=== PATIENT | female | born 1995 | race Caucasian/White ===

== ENCOUNTER 2017-06-11 05:14 | Emergency (ER) | payer OTHER ==
[~2017-06-11] VITALS: Ht 165.1 cm; Wt 62.8 kg
[~2017-06-11 05:14] MED LIST: ABL5 PO; CETI10TA84 PO; CNC/54 PO; DIPH25CA65 PO; ESOM20CA PO; FERR325T51 PO; LAMO150T PO; MOME50SP5; SNGCH5 PO; ZNTT/150 PO
[2017-06-11] MEDS ORDERED: SODIUM CHLORIDE 0.9% 1000ML 1,000 ML IV STA (05:22)
[2017-06-11] MEDS ORDERED: ONDANSETRON INJ 2 MG/ML 2 ML VIAL IV STA (05:22)
[2017-06-11] MEDS ORDERED: OPTIRAY 320 IV PRN (05:30)
[2017-06-11 05:56] LABS: ISTAT CREATININE 0.7 mg/dl; ISTAT HEMOGLOBIN 12.2 g/dl (12.0-16.0); ISTAT IONIZED CALCIUM 1.21 mmol/l
[2017-06-11 06:00] LABS: URINE APPEARANCE CLOUDY (CLEAR); URINE BILIRUBIN NEG (NEG); URINE COLOR DK YELLOW; URINE EPITHELIAL CELL AUTO >30 /lpf (0-5); URINE NITRITE NEG (NEG); URINE SPECIFIC GRAVITY 1.029 (1.000-1.030); UROBILINOGEN NEG (NEG); ZZUR CULT IF INDIC CLEAN CATCH YES
[2017-06-11 06:01] LABS: BASO % 0.1 %; BASO ABS # 0.02 K/uL (0-0.2); COMPLETE YES; EOS % 0.3 %; HEMATOCRIT 37.3 % (37-47); IG% 0.2 %; LYMPH % 10.1 %; MANUAL MICROSCOPIC REQUIRED? NO; MEAN CELL VOLUME 90.1 fL (80-100); MEAN CORPUSCULAR HEMOGLOBIN 31.9 pg (25-34); MEAN CORPUSCULAR HGB CONC 35.4 g/dl (32-36); MONO % 5.3 %; PLATELET COUNT 282 K/uL (130-400); RED BLOOD COUNT 4.14 M/uL (4.2-5.4); REVIEW REQ? YES; WHITE BLOOD COUNT 13.81 K/uL (4.8-10.8)
[2017-06-11 06:10] LABS: CREATININE 0.85 mg/dl (0.60-1.20); POTASSIUM 3.8 mmol/L (3.5-5.1)
[2017-06-11 06:16] LABS: URINE MUCUS PRESENT (NONE PRSENT)
[2017-06-11 06:26] LABS: PREG INTERNAL NEGATIVE QC NEG CLEAR BACKGROUND; PREG INTERNAL POSITIVE QC POS CONTROL LINE
[2017-06-11] MEDS ORDERED: FERR1TAB13 PO (06:34)
[2017-06-11] MEDS ORDERED: MONT1TAB3 PO (06:37)
[2017-06-11] MEDS ORDERED: MOME6000 NAE (06:39)
[2017-06-11] MEDS ORDERED: CEFOXITIN 2000MG/60 ML D5W IV STA (06:54)
--- NOTE | 2017-06-11 06:59 | EMERGENCY ROOM VISIT NOTE ---
History First contact with patient: 05:20 Chief Complaint: ABDOMINAL PAIN Stated Complaint: SHARP ABDOMINAL PAIN,NAUSEA History of Present Illness The patient is a 21 year old female who presents to the Emergency Room with complaints of nausea and right lower quadrant pain since 7 PM last night steadily getting worse currently 7 out of 10. Palpation makes it worse and nothing makes it better. It does not radiate. Patient denies chest pain, dyspnea, fever, chills, vomiting, diarrhea, back pain, urinary symptoms. No abdominal surgeries. Last menstrual cycle was 2 weeks ago. Review of Systems See HPI for pertinent positives & negatives. A total of 10 systems reviewed and were otherwise negative. Social History Smoking Status: Never Smoker Smokeless Tobacco Use: No Alcohol Use: none Drug Use: none Housing Status: lives with family Current/Historical Medications Scheduled Cetirizine (Zyrtec), 10 MG PO QPM Diphenhydramine Hcl (Benadryl Allergy), 25 MG PO HS Ferrous Sulfate (Kp Ferrous Sulfate), 325 MG PO BID Lamotrigine (Lamictal), 150 MG PO QAM Methylphenidate Hcl (Concerta), 54 MG PO QAM Montelukast Sodium (Singulair), 10 MG PO DAILY Scheduled PRN Esomeprazole Magnesium (Nexium), 20 MG PO QPM PRN for GI Upset Mometasone Furoate (Nasal) (Mometasone Furoate), 1 SPRAY FLACO BID PRN for CONGESTION Ranitidine (Zantac), 150 MG PO QPM PRN for GI Upset Physical Exam Vital Signs Date Time Temp Pulse Resp B/P (MAP) Pulse Ox O2 Delivery O2 Flow Rate FiO2 06/11/17 06:41 66 18 100 06/11/17 06:36 69 100 06/11/17 06:31 108/61 06/11/17 06:29 66 100 06/11/17 06:14 67 100 06/11/17 06:09 70 16 116/67 100 Room Air 06/11/17 05:16 36.8 102 20 108/71 98 Room Air Physical Exam VITALS: Vitals are noted on the nurse's note and reviewed by myself. Vital signs stable. GENERAL: Pleasant female, in no acute distress, nondiaphoretic, well-developed well-nourished. SKIN: The skin was without rashes, erythema, edema, or bruising. There is no tenting of the skin. Capillary reflex less than 2 seconds. HEAD: Normocephalic atraumatic. EARS: External auditory canals clear, tympanic membranes pearly [place] without erythema or effusion bilaterally. EYES: Pupils equal round and reactive to light and accommodation. Conjunctivae without injection, sclerae without icterus. Extraocular movements intact. NOSE: Patent, turbinates without inflammation or discharge. MOUTH: Mucous membranes moist. Pharynx without erythema or exudate. Uvula midline. Airway patent. Tongue does not deviate. NECK: Supple without nuchal rigidity. No lymphadenopathy. No thyromegaly. Cervical spine is nontender. No JVD. HEART: Regular rate and rhythm without murmurs gallops or rubs. LUNGS: Clear to auscultation bilaterally without wheezes, rales or rhonchi. No dullness to percussion. No retractions or accessory muscle use. ABDOMEN: Positive bowel sounds x 4. Normal tympanic percussion. Soft, tender to palpation right lower quadrant, no CVA tenderness, without masses or organomegaly. Kc sign negative. No guarding or rebound tenderness. MUSCULOSKELETAL: No muscle atrophy, erythema, or edema noted. NEURO: Patient was alert and oriented to person place and time. Normal sensation to light and sharp touch. No focal neurological deficits. Medical Decision & Procedures Laboratory Results 06/11/17 05:35 Red Blood Count 4.14, Mean Corpuscular Volume 90.1, Mean Corpuscular Hemoglobin 31.9, Mean Corpuscular Hemoglobin Concent 35.4, Mean Platelet Volume 10.0, Neutrophils (%) (Auto) 84.0, Lymphocytes (%) (Auto) 10.1, Monocytes (%) (Auto) 5.3, Eosinophils (%) (Auto) 0.3, Basophils (%) (Auto) 0.1, Neutrophils # (Auto) 11.59, Lymphocytes # (Auto) 1.40, Monocytes # (Auto) 0.73, Eosinophils # (Auto) 0.04, Basophils # (Auto) 0.02 06/11/17 05:35 Test 06/11/17 05:35 06/11/17 05:44 White Blood Count 13.81 K/uL (4.8-10.8) Red Blood Count 4.14 M/uL (4.2-5.4) Hemoglobin 13.2 g/dL (12.0-16.0) Hematocrit 37.3 % (37-47) Mean Corpuscular Volume 90.1 fL (80-100) Mean Corpuscular Hemoglobin 31.9 pg (25-34) Mean Corpuscular Hemoglobin Concent 35.4 g/dl (32-36) Platelet Count 282 K/uL (130-400) Mean Platelet Volume 10.0 fL (7.4-10.4) Neutrophils (%) (Auto) 84.0 % Lymphocytes (%) (Auto) 10.1 % Monocytes (%) (Auto) 5.3 % Eosinophils (%) (Auto) 0.3 % Basophils (%) (Auto) 0.1 % Neutrophils # (Auto) 11.59 K/uL (1.4-6.5) Lymphocytes # (Auto) 1.40 K/uL (1.2-3.4) Monocytes # (Auto) 0.73 K/uL (0.11-0.59) Eosinophils # (Auto) 0.04 K/uL (0-0.5) Basophils # (Auto) 0.02 K/uL (0-0.2) RDW Standard Deviation 41.2 fL (36.4-46.3) RDW Coefficient of Variation 12.6 % (11.5-14.5) Immature Granulocyte % (Auto) 0.2 % Immature Granulocyte # (Auto) 0.03 K/uL (0.00-0.02) Urine Color DK YELLOW Urine Appearance CLOUDY (CLEAR) Urine pH 5.0 (4.5-7.5) Urine Specific [place] 1.029 (1.000-1.030) Urine Protein NEG (NEG) Urine Glucose (UA) NEG (NEG) Urine Ketones NEG (NEG) Urine Occult Blood NEG (NEG) Urine Nitrite NEG (NEG) Urine Bilirubin NEG (NEG) Urine Urobilinogen NEG (NEG) Urine Leukocyte Esterase NEG (NEG) Urine WBC (Auto) 1-5 /hpf (0-5) Urine RBC (Auto) 0-4 /hpf (0-4) Urine Hyaline Casts (Auto) 0 /lpf (0-5) Urine Epithelial Cells (Auto) >30 /lpf (0-5) Urine Bacteria (Auto) 1+ (NEG) Urine Pathogenic Casts /lpf (0) Urine Mucus PRESENT (NONE PRSENT) Est Creatinine Clear Calc Drug Dose 95.8 ml/min Estimated GFR () 115.1 Estimated GFR (Non- 99.3 BUN/Creatinine Ratio 9.0 (10-20) Calcium Level 9.0 mg/dl (8.5-10.1) Human Chorionic Gonadotropin, Qual NEG (NEG) Bedside Hemoglobin 12.2 g/dl (12.0-16.0) Bedside Hematocrit 36 % (37-47) Bedside Sodium 141 mEq/L (135-144) Bedside Potassium 3.8 mEq/L (3.3-5.0) Bedside Chloride 105 mEq/L (101-112) Bedside Total CO2 24 mEq/l (24-31) Anion Gap 17.0 mmol/L (16-25) Bedside Blood Urea Nitrogen 6 mg/dl (7-18) Bedside Creatinine 0.7 mg/dl Bedside Glucose (other) 104 mg/dl (70-99) Bedside Ionized Calcium (Xiomy) 1.21 mmol/l Medications Administered Medications (Trade) Dose Ordered Sig/Jess Route Start Time Stop Time Status Last Admin Dose Admin Sodium Chloride 1,000 ml @ 999 mls/hr Q1H1M STAT IV 06/11/17 05:22 06/11/17 06:22 DC 06/11/17 05:53 999 MLS/HR Ondansetron HCl (Zofran Inj) 4 mg NOW STAT IV 06/11/17 05:22 06/11/17 05:25 DC 06/11/17 05:54 4 MG ED Course Prior records/ancillary studies reviewed. Triage Nursing notes reviewed. Additional history obtained from family The patient's history was concerning for abdominal pain. Differential diagnosis: Etiologies such as appendicitis, ovarian cyst, diverticulitis, PUD, biliary pathology, UTI, pancreatitis, obstruction, mesenteric ischemia, aortic pathology , infections, inflammatory bowel disease, renal colic, as well as others were entertained. Physical examination findings: As above. ER treatment provided: IV fluids, Zofran, Mefoxin On reassessment the patient felt better. Diagnostics interpreted by me: The labs revealed leukocytosis. Stable H&H. Negative urine Imaging studies: CT concerning for acute appendicitis Consultation: A consultation was placed with the Dr. Bautista. The case was discussed and diagnostics were reviewed. The patient was evaluated in the ER for further treatment. Exam and history seem consistent with acute appendicitis. Patient was neurovascularly and neurologically intact. She is well-appearing. She is afebrile and nontoxic. She will be evaluated by surgery. She is placed nothing by mouth. By the evaluation outlined above emergent etiologies such as diverticulitis, PUD , biliary pathology, UTI, pancreatitis, obstruction, mesenteric ischemia, aortic pathology, inflammatory bowel disease, renal colic, as well as others were deemed relatively unlikely. The pt informed about the findings as listed above. All questions were answered and pleased with the treatment. Case reviewed with my attending Medical Decision As above Medication Reconcilliation Current Medication List: was personally reviewed by me Blood Pressure Screening Patient's blood pressure: Normal blood pressure Impression Primary Impression: Appendicitis Departure Information Dispostion Being Evaluated By Surgeon Condition GOOD Referrals Henrique Kerns M.D. (MEDICAL) (PCP) Patient Instructions My [facility] Problem Qualifiers Primary Impression: Appendicitis Appendicitis type: acute appendicitis Acute appendicitis type: with localized peritonitis Qualified Codes: K35.3 - Acute appendicitis with localized peritonitis
--- NOTE | 2017-06-11 07:25 | DIAGNOSTIC IMAGING REPORT ---
ABDOMEN AND PELVIS CT WITH IV CONTRAST CT DOSE: 272.02 mGy.cm HISTORY: Right lower quadrant abdominal pain. TECHNIQUE: Multiaxial CT images of the abdomen and pelvis were performed following the use of intravenous contrast. A dose lowering technique was utilized adhering to the principles of ALARA. COMPARISON STUDY: Abdomen and pelvis CT 07/16/2010. FINDINGS: The lung bases are clear. The liver, gallbladder, spleen, adrenal glands, pancreas, and kidneys are unremarkable. No retroperitoneal lymphadenopathy. No evidence for bowel obstruction. The bladder, uterus, and ovaries are unremarkable. There is a fluid-filled, thick-walled, distended appendix seen within the right lower quadrant on image 62. This measures 9 mm in diameter and is consistent with acute appendicitis. No perforation or abscess at this time. IMPRESSION: Acute appendicitis. Electronically signed by: Gilbert Christine M.D. 06/11/2017 7:24 AM Dictated Date/Time: 06/11/2017 7:22 AM
[2017-06-11 07:45] VITALS: O2SAT 100; Ht 165.1 cm; Wt 62.8 kg
--- NOTE | 2017-06-11 07:49 | Medical Consult ---
Consultation Date of Consultation: Jun 11, 2017. Attending Physician: Reason for Consultation: Acute Appendicitis History of Present Illness Ms. Rosario is a 21-year-old female who presented to the [facility] ED for abdominal pain that began yesterday evening around 7PM. Patient states that abdominal pain started roughly 1 hour after dinner. She states that the pain is located near the umbilicus and is now radiating into right lower quadrant. She reports that she was nauseous, but that has improved. Patient denies prior abdominal surgeries. Past Medical/Surgical History Medical Problems: (1) Appendicitis Status: Acute (2) Finger laceration Status: Acute Surgical History 1. Adenoidectomy Social History Smoking Status: Never Smoker Smokeless Tobacco Use: No Drug Use: none Housing Status: lives with family Allergies Coded Allergies: Albuterol (Verified Adverse Reaction, Intermediate, CONFUSION, 06/11/17) Current Inpatient Medications Current Inpatient Medications Medications (Trade) Dose Ordered Sig/Jess Route Start Time Stop Time Status Last Admin Dose Admin Ioversol (Optiray 320) 100 ml UD PRN IV 06/11/17 05:30 06/15/17 05:29 Review of Systems Constitutional: No fever, No chills Respiratory: No cough Cardiovascular: No chest pain Abdomen: + pain, No nausea, No vomiting Physical Exam Date Time Temp Pulse Resp B/P (MAP) Pulse Ox O2 Delivery O2 Flow Rate FiO2 06/11/17 06:41 66 18 100 06/11/17 06:36 69 100 06/11/17 06:31 108/61 06/11/17 06:29 66 100 06/11/17 06:14 67 100 06/11/17 06:09 70 16 116/67 100 Room Air 06/11/17 05:16 36.8 102 20 108/71 98 Room Air General Appearance: WD/WN, no apparent distress Head: normocephalic, atraumatic Neck: supple Respiratory/Chest: normal breath sounds, no respiratory distress, no accessory muscle use Abdomen/GI: soft, + pertinent finding (tender to palpation at umbilicus and right lower quadrant. ) Skin: normal color, warm/dry, no rash Laboratory Results Last 24 Hours Test 06/11/17 05:35 06/11/17 05:44 White Blood Count 13.81 K/uL Red Blood Count 4.14 M/uL Hemoglobin 13.2 g/dL Hematocrit 37.3 % Mean Corpuscular Volume 90.1 fL Mean Corpuscular Hemoglobin 31.9 pg Mean Corpuscular Hemoglobin Concent 35.4 g/dl Platelet Count 282 K/uL Mean Platelet Volume 10.0 fL Neutrophils (%) (Auto) 84.0 % Lymphocytes (%) (Auto) 10.1 % Monocytes (%) (Auto) 5.3 % Eosinophils (%) (Auto) 0.3 % Basophils (%) (Auto) 0.1 % Neutrophils # (Auto) 11.59 K/uL Lymphocytes # (Auto) 1.40 K/uL Monocytes # (Auto) 0.73 K/uL Eosinophils # (Auto) 0.04 K/uL Basophils # (Auto) 0.02 K/uL RDW Standard Deviation 41.2 fL RDW Coefficient of Variation 12.6 % Immature Granulocyte % (Auto) 0.2 % Immature Granulocyte # (Auto) 0.03 K/uL Urine Color DK YELLOW Urine Appearance CLOUDY Urine pH 5.0 Urine Specific [place] 1.029 Urine Protein NEG Urine Glucose (UA) NEG Urine Ketones NEG Urine Occult Blood NEG Urine Nitrite NEG Urine Bilirubin NEG Urine Urobilinogen NEG Urine Leukocyte Esterase NEG Urine WBC (Auto) 1-5 /hpf Urine RBC (Auto) 0-4 /hpf Urine Hyaline Casts (Auto) 0 /lpf Urine Epithelial Cells (Auto) >30 /lpf Urine Bacteria (Auto) 1+ Urine Pathogenic Casts /lpf Urine Mucus PRESENT Sodium Level 137 mmol/L Potassium Level 3.8 mmol/L Chloride Level 108 mmol/L Carbon Dioxide Level 24 mmol/L Anion Gap 5.0 mmol/L 17.0 mmol/L Blood Urea Nitrogen 8 mg/dl Creatinine 0.85 mg/dl Est Creatinine Clear Calc Drug Dose 95.8 ml/min Estimated GFR () 115.1 Estimated GFR (Non- 99.3 BUN/Creatinine Ratio 9.0 Random Glucose 100 mg/dl Calcium Level 9.0 mg/dl Human Chorionic Gonadotropin, Qual NEG Bedside Hemoglobin 12.2 g/dl Bedside Hematocrit 36 % Bedside Sodium 141 mEq/L Bedside Potassium 3.8 mEq/L Bedside Chloride 105 mEq/L Bedside Total CO2 24 mEq/l Bedside Blood Urea Nitrogen 6 mg/dl Bedside Creatinine 0.7 mg/dl Bedside Glucose (other) 104 mg/dl Bedside Ionized Calcium (Xiomy) 1.21 mmol/l ABDOMEN AND PELVIS CT WITH IV CONTRAST CT DOSE: 272.02 mGy.cm HISTORY: Right lower quadrant abdominal pain. TECHNIQUE: Multiaxial CT images of the abdomen and pelvis were performed following the use of intravenous contrast. A dose lowering technique was utilized adhering to the principles of ALARA. COMPARISON STUDY: Abdomen and pelvis CT 07/16/2010. FINDINGS: The lung bases are clear. The liver, gallbladder, spleen, adrenal glands, pancreas, and kidneys are unremarkable. No retroperitoneal lymphadenopathy. No evidence for bowel obstruction. The bladder, uterus, and ovaries are unremarkable. There is a fluid-filled, thick-walled, distended appendix seen within the right lower quadrant on image 62. This measures 9 mm in diameter and is consistent with acute appendicitis. No perforation or abscess at this time. IMPRESSION: Acute appendicitis. Assessment & Plan 21-year-old female CT positive for acute appendicitis- no perforation or abscess at this time. Patient seen and examined with Dr. Bautista. WBC elevated at 13.81 Patient's last meal was at 6PM yesterday. Will plan for Laparoscopic Appendectomy, Possible Open in OR today. Discussed risks and benefits of surgery with patient and patient's mother. Patient had no further questions. Pre-op antibiotic ordered. NPO BRITTANYs
[2017-06-11] MEDS ORDERED: HYDROmorphone INJ 0.5 MG/0.5 ML SYR IV PRN (08:45)
[2017-06-11] MEDS ORDERED: ATROPINE SULFATE 0.1 MG/ML 5ML SYR IV PRN (08:45)
[2017-06-11] MEDS ORDERED: FENTANYL CITRATE INJ 50 MCG/1 ML 2 ML VIAL IV PRN (08:45)
[2017-06-11] MEDS ORDERED: ONDANSETRON INJ 2 MG/ML 2 ML VIAL IV PRN ×2 (08:45→11:00)
[2017-06-11] MEDS ORDERED: EpHEDrine SULFATE INJ 50 MG/ML AMP IV PRN (08:45)
[2017-06-11] MEDS ORDERED: PROMETHAZINE HCL INJ 12.5 MG in SODIUM CHLORIDE 0.9% 50ML 50 ML IV PRN (08:45)
[2017-06-11] MEDS ORDERED: LIDOCAINE/EPINEPHRINE 1% 20 ML VIAL ONE (08:52)
[2017-06-11 09:33] VITALS: O2SAT 100
[2017-06-11] MEDS ORDERED: ONDANSETRON INJ 2 MG/ML 2 ML VIAL ONE (09:33)
[2017-06-11] MEDS ORDERED: PROPOFOL IV EMULSION 10 MG/ML 20 ML VIAL IV ONE (09:33)
[2017-06-11] MEDS ORDERED: NEOSTIGMINE METHYLSULFATE 5 MG/5 ML SYR ONE (09:33)
[2017-06-11] MEDS ORDERED: DEXAMETHASONE SOD INJ 4 MG/ML VIAL ONE (09:33)
[2017-06-11] MEDS ORDERED: FENTANYL CITRATE INJ 50 MCG/1 ML 2 ML VIAL ONE ×2 (09:33→10:14)
[2017-06-11] MEDS ORDERED: MIDAZOLAM HCL 1 MG/ML 2ML VIAL ONE (09:33)
[2017-06-11] MEDS ORDERED: GLYCOPYRROLATE INJ 0.2 MG/ML VIAL ONE (09:33)
[2017-06-11] MEDS ORDERED: ROCURONIUM BROMIDE 10 MG/ML 5 ML VIAL IV ONE (09:33)
[2017-06-11] MEDS ORDERED: LIDOCAINE HCL 2% 2 ML VIAL (20MG/ML) ONE (09:33)
[2017-06-11] MEDS ORDERED: ACETAMINOPHEN 1000 MG/100 ML IV IV ONE (09:38)
--- NOTE | 2017-06-11 09:51 | History & Physical Bridge Note ---
H&P Re-Evaluation Bridge Note: I have examined the patient, reviewed the History & Physical and in the interval since the performance of the History & Physical I have noted the following changes of clinical significance: No changes noted pt seen and examined plan lap appy possible open for acute appendicitis. r and c explained to pt and family
[2017-06-11] MEDS ORDERED: CEFOXITIN SOD 1 GM VIAL ONE (10:15)
[2017-06-11] MEDS ORDERED: SODIUM CHLORIDE 0.9% 1000ML 1,000 ML IV SCH (10:46)
--- NOTE | 2017-06-11 10:47 | [facility] Operative Report ---
Operative Report Operative Date Jun 11, 2017. Pre-Operative Diagnosis Acute appendicitis Post-Operative Diagnosis same Procedure(s) Performed Laparoscopic Appendectomy Surgeon Dr Bautista [place] Actor Surgeon(s) Genny Mckeon PA-C Estimated Blood Loss 2ML Findings acute non ruptured appendicitis Specimens A. appendix Description of Procedure OR summary dictated [id number] I attest to the content of the Intraoperative Record and any orders documented therein. Any exceptions are noted below.
[2017-06-11] MEDS ORDERED: OXYC-57 PO (10:49)
--- NOTE | 2017-06-11 10:53 | Discharge Instructions ---
Discharge Instructions Date of Service Jun 11, 2017. Admission Reason for Admission: Sharp Abdominal Pain,Nausea Discharge Discharge Diagnosis / Problem: Sharp Abdominal Pain, Nausea Discharge Goals Goal(s): Decrease discomfort, Improve function Activity Recommendations Activity Limitations: as noted below Lifting Limitations: no more than 10 pounds Exercise/Sports Limitations: until after follow-up appointment May Resume Sexual Activity: after follow-up appointment Shower/Bathe: tomorrow Driving or Machine Use: resume 1 day after discharge . Instructions / Follow-Up Instructions / Follow-Up You may shower tomorrow AM. You have steri-strips over your incision. Please leave those on until they fall off by themselves. Please follow-up with Dr. Bautista in the General Surgery Office in 1 week. The General Surgery Office is located at [address] [place] [address], [place] [address]. Please call the office at [phone] to make a follow-up appointment. Please call the office with any questions or concerns. Current Hospital Diet Patient's current hospital diet: Discharge Diet Recommended Diet: Regular Diet Procedures Procedures Performed: Laparoscopic Appendectomy Pending Studies Studies pending at discharge: yes List of pending studies: Pathology report. Medical Emergencies . Who to Call and When: Medical Emergencies: If at any time you feel your situation is an emergency, please call 911 immediately. . Non-Emergent Contact Non-Emergency issues call your: Primary Care Provider, Surgeon Call Non-Emergent contact if: temperature is above 101.5, your pain is not controlled, wound has increased drainage, wound has increased redness . "Provider Documentation" section prepared by Genny Mckeon. . VTE Core Measure Inpt VTE Proph given/why not?: SCD's [place] Drug Monitoring Program Search Results: patient reviewed within database, no issues identified
[2017-06-11] MEDS ORDERED: OXYCODONE/ACETAMINOPHEN 5-325 TAB PO PRN ×2 (11:00)
[2017-06-11] MEDS ORDERED: OXYCODONE/ACETAMINOPHEN 5-325 TAB ONE (11:20)
--- NOTE | 2017-06-11 11:25 | Anesthesiology Progress Note ---
Anesthesia Post Op Note Date & Time Jun 11, 2017 at 11:24 Vital Signs Pain Intensity: 2 Vital Signs Past 12 Hours Date Time Temp Pulse Resp B/P (MAP) Pulse Ox O2 Delivery O2 Flow Rate FiO2 06/11/17 11:21 36.5 59 16 130/76 100 Nasal Cannula 2 06/11/17 11:11 120/63 06/11/17 11:11 120/63 06/11/17 11:08 89 17 06/11/17 11:08 89 17 06/11/17 11:08 92 17 100 06/11/17 11:08 92 17 100 06/11/17 11:06 129/69 06/11/17 11:06 129/69 06/11/17 11:03 62 14 100 06/11/17 11:03 62 14 06/11/17 11:03 62 14 100 06/11/17 11:03 62 14 06/11/17 11:01 133/68 06/11/17 11:01 133/68 06/11/17 10:59 128/74 06/11/17 10:59 128/74 06/11/17 10:58 36.6 103 14 128/74 (88) 100 Oxymask 10 06/11/17 09:33 77 20 115/60 100 06/11/17 07:45 100 Room Air 06/11/17 07:31 115/62 06/11/17 07:16 69 100 06/11/17 07:01 112/66 06/11/17 06:46 61 100 06/11/17 06:41 66 18 100 06/11/17 06:36 69 100 06/11/17 06:31 108/61 06/11/17 06:29 66 100 06/11/17 06:14 67 100 06/11/17 06:09 70 16 116/67 100 Room Air 06/11/17 05:16 36.8 102 20 108/71 98 Room Air Notes Mental Status: alert / awake / arousable, participated in evaluation Pt Amnestic to Procedure: Yes Nausea / Vomiting: adequately controlled Pain: adequately controlled Airway Patency, RR, SpO2: stable & adequate BP & HR: stable & adequate Hydration State: stable & adequate Anesthetic Complications: no major complications apparent Awake, no complaints, doing well. VSS
--- NOTE | 2017-06-11 11:34 | OPERATIVE REPORT ---
DATE OF OPERATION: 06/11/2017 SURGEON: Dr. Bautista. ANTHROPOLOGY LECTURER: Genny Mckeon PA-C PREOPERATIVE DIAGNOSIS: Acute appendicitis. POSTOPERATIVE DIAGNOSIS: Same. PROCEDURE: Laparoscopic appendectomy. SUMMARY: The patient was brought into the operating room theater, had voided prior to going to the OR. The abdomen was prepped with Betadine solution and properly draped. A small incision was made supraumbilically sufficient enough to enter a Veress needle followed by CO2 followed by a 5 mm trocar. Point of entry inspected and no injury identified. Under direct visualization, then were able to place a 5 mm right upper quadrant port with preemptive local analgesia 1% Xylocaine and using these 2 ports, we were able to identify the cecum. I could see the appendix was acutely nonruptured and inflamed just at the pelvic brim. We at this point then changed the 5 mm umbilical port to 11 mm and used a [address] in the left lower quadrant, placed the scope the left lower quadrant and utilized the 2 other ports. We were able to elevate the appendix, created a window in the mesoappendix right at the base and then used a blue loaded an Endo-SHANTE to divide the appendix off the cecal base. Then we used another to divide the mesentery. Once this had been accomplished, we checked the 2 staple lines and they were sufficiently hemostatic. There was no bleeding appreciated. Placed the appendix in an Endopouch and took it out intact through the epigastric port then removed the other 2 points. Point of entries were identified. We then closed the wound using a fascial stitch of 0 Vicryl x2 for the umbilical port, the other one is 4-0 Monocryl. Steri-Strips applied. The procedure was tolerated well by the patient. Estimated blood loss approximately 2 mL. The patient was taken to recovery room in good condition. I attest to the content of the Intraoperative Record and any orders documented therein. Any exception s are noted below.
[2017-06-11 11:38] VITALS: BP 125/75; PULSE 64; TEMP 36.5; O2SAT 100
[2017-06-11 14:30] VITALS: BP 119/79; PULSE 59; O2SAT 98
== END 2017-06-11 09:34 | disposition still patient (30) ==
LOC: C.EDB 05:15
DX: K35.80 Unspecified acute appendicitis (principal)